=== PATIENT | male | born 1990 | race Hispanic/Latino ===

== ENCOUNTER 2021-04-18 13:07 | Emergency (ER) | payer SELFPAY ==
[2021-04-18 14:30] VITALS: BP 126/90; PULSE 81; RESP 16; TEMP 36.3; O2SAT 98
--- NOTE | 2021-04-18 14:54 | ED.PSYCH ---
HPI - Psych General Chief Complaint: Psychiatric Symptoms Stated Complaint: altered mental status/Anxiety Time Seen by Provider: 04/18/21 14:54 Source: patient Mode of arrival: ambulatory Limitations: no limitations History of Present Illness HPI Narrative: 30-year-old man comes in today complaining of panic attacks and anxiety that started approximately 1 week ago. He has a history of the same. He states that recently he has had some conflict with his mother over the fact that both he and his dog live with her. She is threatening to kick him out. He states that he has been hearing his dog bark even though the dogs [place]. He denies prior similar hallucinations. He states that he was admitted to the hospital for psychiatric evaluation 2 years ago and took medicines for anxiety, depression and PTSD up until 1 year ago. He stopped because he could no longer afford them. Patient states that he cannot tell us whether not he is suicidal because he does not know what will happen to his car if he is admitted. MD complaint: feels depressed and other (Hallucinations, panic attacks) Onset (ago): week(s) (1) Duration: constant and getting worse History of same: Yes Relieving factors: none Exacerbating factors: none Context: recent drug abuse (Marijuana), not taking psychiatric medications and significant life stressor Associated psychiatric symptoms: auditory hallucinations Associated symptoms: insomnia and other (Poor appetite) Treatments prior to arrival: none Related Data Home Medications Medication Instructions Recorded Confirmed No Home Medications 04/18/21 04/18/21 Allergies Allergy/AdvReac Type Severity Reaction Status Date / Time shellfish derived Allergy Anaphylaxis Verified 04/18/21 14:41 Review of Systems Review of Systems: All systems reviewed & are unremarkable except as noted in HPI and below Constitutional: Constitutional: Denies chills and Denies fever(s) Eyes: Eyes: Denies change in vision and Denies photophobia ENT: Denies nasal congestion and Denies sore throat Cardiovascular: Cardiovascular: Denies chest pain and Denies radiating jaw, neck or arm pain Respiratory: Respiratory: Denies cough, Denies dyspnea and Denies wheezing Gastrointestinal: Gastrointestinal: Denies abdominal pain, Denies diarrhea, Denies nausea and Denies vomiting Genitourinary: Genitourinary: Denies dysuria and Denies urinary frequency Musculoskeletal: Musculoskeletal: Denies back pain, Denies arthralgias and Denies joint swelling Integumentary/Breasts: Skin/Breast: Denies pruritus, Denies erythema and Denies rash Neurologic: Denies vertigo, Denies dizziness, Denies syncope, Denies headache(s), Denies focal weakness and Denies numbness Hematologic/Lymphatic: Hematologic/Lymphatic: Denies easy bleeding and Denies easy bruising Allergic/Immunologic: Allergic/Immunologic: Denies throat swelling and Denies tongue swelling [facility] Past Medical History Medical History (Updated 04/18/21 @ 20:29 by Brayan Ruvalcaba MD) Panic disorder PTSD (post-traumatic stress disorder) Suicide attempt 2 years ago Social History Social History (Updated 04/18/21 @ 15:07 by Brayan Ruvalcaba MD) Smoking status: Never smoker Alcohol intake: never Substance use: current Substance use type: marijuana Living arrangements: with family Exam Const: General: healthy appearing, no acute distress and alert Orientation/consciousness: patient oriented x3 Limitations: no limitations HENMT: Head: normal to inspection Ears: external ears normal, TM's normal bilaterally and EAC's normal General nose exam: Normal nares present Face and sinus: normal facial exam Throat: posterior oropharynx normal and uvula midline Eyes: Conjunctivae: conjunctivae normal Pupils: Equal, round and reactive pupils present EOM: EOMs intact bilaterally Resp: Effort & Inspection: normal respiratory effort and not labored Auscultation: clear to
[2021-04-18 15:25] LABS: Basophils Absolute Auto 0.02 K/mm3 (0.00-0.10); Basophils Percent Auto 0.3 % (0.0-1.0); Eosinophils Absolute Auto 0.06 K/mm3 (0.02-0.50); Eosinophils Percent Auto 0.9 % (1.0-6.0); Hematocrit 46.1 % (40.0-54.0); Hemoglobin 15.7 g/dL (14.0-18.0); Immature Granulocyte Absolute 0.05 K/mm3 (0.00-0.00); Immature Granulocyte Percent A 0.7 % (0.0-0.0); Lymphocytes Absolute Auto 1.63 K/mm3 (1.10-4.50); Lymphocytes Percent Auto 23.7 % (18.0-42.0); Mean Corpuscular HGB Conc 34.1 g/dL (32.0-36.0); Mean Corpuscular Hemoglobin 30.3 pg (27.0-31.0); Mean Corpuscular Volume 88.8 fL (78.0-102.0); Mean Platelet Volume 9.2 fl (8.7-11.0); Monocytes Absolute Auto 0.77 K/mm3 (0.10-0.90); Monocytes Percent Auto 11.2 % (2.0-11.0); Neutrophils Absolute Auto 4.4 K/mm3 (1.7-7.2); Neutrophils Percent Auto 63.2 % (50.0-70.0); Platelet Count Result 246 K/mm3 (150-420); Red Blood Count 5.19 M/mm3 (4.70-6.10); Red Cell Distribution Width 13.2 % (11.6-14.4); White Blood Count 6.9 K/mm3 (4.8-10.8)
[2021-04-18 15:42] LABS: Alanine Aminotransferase 40 U/L (16-63); Albumin Level 4.1 g/dL (3.4-5.0); Alkaline Phosphatase 60 U/L (46-116); Anion Gap 9 mmol/L (8-16); Aspartate Amino Transferase 18 U/L (15-37); Bilirubin,Total 1.3 mg/dL (0.00-1.00); Blood Urea Nitrogen 10 mg/dL (7-18); Calcium 8.7 mg/dL (8.5-10.1); Carbon Dioxide 30 mmol/L (21-32); Chloride 103 mmol/L (98-108); Estimated CRCL calculation 134 ml/min; Estimated Glomerular Filt Rate > 60; Glucose 92 mg/dL (70-99); Osmolality Calculated 293 mOsm/kg (285-295); Potassium 3.9 mmol/L (3.5-5.1); Sodium 142 mmol/L (136-145); Thyroid Stimulating Hormone 0.95 uIU/mL (0.36-3.74)
[2021-04-18 15:43] LABS: SARS-CoV-2 Ag Negative (Negative)
[2021-04-18 15:44] LABS: Acetaminophen < 2 ug/mL (10-30); Ethanol < 3 mg/dL (0-6); Salicylate < 0.2 mg/dL (2.8-20.0)
[2021-04-18 17:05] LABS: Add Urine Microscopic? YES; Appearance Urine Clear (Clear); Bilirubin Urine Negative (Negative); Blood Urine Negative (Negative); Color Urine Yellow (Yellow); Glucose Urine UA Negative (Negative); Ketones Urine Trace (Negative); Leukocyte Esterase Ur Negative LEU/UL (Negative); Nitrate Urine Negative (Negative); Protein Urine Negative (Negative)
[2021-04-18 17:18] LABS: RBC Urine None seen /hpf (0-2); Squamous Epithelial Cell Urine Few /hpf (Few); WBC Urine 0-3 /hpf (0-3)
[2021-04-18 17:19] LABS: Bacteria Urine Trace /hpf; Mucus Urine Few /lpf
[2021-04-18 17:23] LABS: Amphetamine Screen Urine Negative (Negative); Barbiturate Screen Urine Negative (Negative); Benzodiazepines Screen Urine Negative (Negative); Cannabinoid Screen Urine Positive (Negative); Cocaine Screen Urine Negative (Negative); Methadone Screen Urine Negative (Negative); Opiate Screen Urine Negative (Negative); Phencyclidine Screen Urine Negative (Negative)
[2021-04-18 19:30] VITALS: BP 148/87; PULSE 87; RESP 20; O2SAT 97
--- NOTE | 2021-04-18 20:09 | PC.NURSE ---
1899 report from GREGORY Brizuela. Hayes in room for crisis evaluation. 1999 Hayes remains in room with pt.
--- NOTE | 2021-04-18 21:42 | PC.NURSE ---
Hayes remains in room with pt
[2021-04-19 03:03] VITALS: BP 133/99; PULSE 72; RESP 16; TEMP 35.6; O2SAT 100
--- NOTE | 2021-04-19 03:08 | PC.NURSE ---
pt notified of transfer to [facility]. voiced understanding. awaiting transport
--- NOTE | 2021-04-19 03:32 | PC.NURSE ---
report to [facility] staff. pt loaded to cot, cooperative. departs with personal belongings.
== END 2021-04-19 03:33 ==
PROVIDERS: Emergency Provider Emergency Medicine
DX: R45.851 Suicidal ideations (principal); Z20.822 Contact with and (suspected) exposure to COVID-19
CPT/HCPCS: 36415; 80053; 80307; 81001; 84443; 85025; 87426; 99285; C9803